=== PATIENT | female | born 1960 | race Caucasian/White ===

== ENCOUNTER 2022-04-18 08:57 | Day surgery (SDC) | payer BC, SELFPAY ==
[2022-04-13 10:55] VITALS: BMI 24.7
[2022-04-13 12:27] VITALS: BMI 24.0
--- NOTE | 2022-04-15 13:01 | MHC.SHP ---
Pre-Procedural Eval Section A Date of Service: 04/15/22 The patient is an INPATIENT: No Changes since office visit: No Cold of Flu in the past 2 weeks, No New Medical Problems, No Changes in Medication and No Patient answered all questions The History & Physical has been completed within 30 days and I have reviewed it.: Yes Section B Chief Complaint: cataract Allergies: Allergies Allergy/AdvReac Type Severity Reaction Status Date / Time oxycodone [From ROXICET] Allergy Unknown ITCHINESS Verified 04/13/22 12:27 Plan Diagnosis/Plan: Unchanged I have reviewed the history and physical and performed a pertinent physical examination on my patient. No changes have occurred unless specified.
[2022-04-18 10:41] VITALS: BP 137/44; PULSE 69; RESP 16; TEMP 36.4; O2SAT 99
--- NOTE | 2022-04-18 10:46 | HO.ANESPROP2 ---
HPI - Anesthesia Eval Consult details Narrative: Right eye cataract [facility] Past Medical History Medical History Anemia Cataract Heart murmur Hypercholesteremia Hypertension Vitamin D deficiency Family History Family history of problems with anesthesia: No Surgical History Surgical History History of bunionectomy Hx of tonsillectomy History of Problems with Anesthesia: No Social History Social History Are you a primary chronic care nurse to a significant other at home: No Do you presently have visiting nurse or other home services: No Patient Tobacco Use Status: Never used Tobacco Use of substances other than those prescribed or required for medical reasons: No Are you DNR?: No Advance Directives: No Advance Directives Information Provided: Yes Advance Directives on File: No Nutrition Risks: No Nutritional Risk Meds Allergies Allergy/AdvReac Type Severity Reaction Status Date / Time oxycodone [From ROXICET] Allergy Unknown ITCHINESS Verified 04/13/22 12:27 Active Medications: Current Medications Lactated Ringer's (Lr) 500 mls @ 50 mls/hr IVCONT .Q10H ROBERT Povidone Iodine (Povidone Iodine 5 % Ophth Soln 30 Ml Bottle) 1 appl EYE-RIGHT PREOP PRN PRN Reason: Pre-Op Surgical Implant Prophy Home Medications Medication Instructions Recorded Confirmed Last Taken Type fenofibrate 160 mg tablet 1 tab PO DAILY 04/13/22 04/13/22 Unknown History hydrochlorothiazide 25 mg tablet 1 tab PO DAILY 04/13/22 04/13/22 04/18/22 History olmesartan 5 mg tablet 1 tab PO BID 04/13/22 04/13/22 04/18/22 History simvastatin 40 mg tablet 1 tab PO BEDTIME 04/13/22 04/13/22 Unknown History valacyclovir 500 mg tablet 1 tab PO DAILY PRN Cold Sores 04/13/22 04/13/22 Unknown History Exam Exam Date and Time: April 18, 2022 1046 Height,Weight and Vital Signs: Height 5 ft 4 in Weight 63.503 kg Last Vital Signs Temp 97.5 F 04/18/22 10:41 Pulse 69 04/18/22 10:41 Resp 16 04/18/22 10:41 BP 137/44 L 04/18/22 10:41 Pulse Ox 99 04/18/22 10:41 O2 Del Method 04/18/22 10:41 Airway Mallampati Class: II TM Dist: >3cm Neck ROM: Full Loose/Missing/Broken Teeth: No Heart: [id number] Lungs: cta b/l Assessment and Plan Assessment Anesthesia Assessment: Anesthesia Plan Discussed and Chart Reviewed Final Anesthetic Review Family History of Problems with Anesthesia: No History of Problems with Anesthesia: No NPO: Yes ASA Class: II Final Preanesthetic Review: No Changes in Pt Med Stat, Meds/Allgs Chart Reviewed, Consent Obtained/Reviewed and Anes Risks/Benef Reviewed Patient Risk: Low Procedure Risk: Low Assessment/Block/Sedation in SS: Assess/Block/Sedation-SS Anesthetic Plan Anesthetic Plan: MAC: and Agree w/ Assess. and Plan Disposition: Standard PACU
[2022-04-18] MEDS: Lactated Ringers 500 ML 50 ML IVCONT (10:52)
[2022-04-18] MEDS: Tetracaine HCl/PF 0.5% Oph Sol 4 ML DROPS 1 DROP EYE-RIGHT (10:52)
[2022-04-18] MEDS: Cyclopentolate 1 % Ophth Sol 2 ML DRPBTL 1 DROP EYE-RIGHT ×3 (10:53→11:03)
[2022-04-18] MEDS: Tropicamide 1 % Ophth Sol 3 ML BTL 1 DROP EYE-RIGHT ×3 (10:53→11:04)
[2022-04-18] MEDS: Phenylephrine HCL 2.5% Oph SoL 2 ML BOTTLE 1 DROP EYE-RIGHT ×3 (10:58→11:07)
--- NOTE | 2022-04-18 11:45 | HO.PNOPHT ---
Ophthalmology Procedure Procedure Date of Service: 04/18/22 Ophthalmology Viscoelastic: Healon Duet Dual Pack Pro Ophthalmology Lenses: TECNIS [id number] (20.5) Procedure Notes: PREOPERATIVE DIAGNOSIS: Decreased visual acuity right eye secondary to cataract POSTOPERATIVE DIAGNOSIS: Same PROCEDURE: Right cataract extraction with intraocular lens insertion SURGEON: Torres Higgins M.D. ANESTHESIA: Topical/MAC ESTIMATED BLOOD LOSS: None COMPLICATIONS: None After obtaining informed consent, the patient was brought to the operating room suite and placed in the supine position. After adequate sedation per anesthesia, topical drops of Tetracaine were given to the right eye. The eye was then prepped and draped in the usual sterile fashion. The operating room microscope was then positioned over the operative eye and a lid speculum placed. A paracentesis was created. Viscoelastic was then instilled into the anterior chamber. A three plane incision was then created temporally, utilizing a 2.85 mm keratome. Capsulotomy forceps were then utilized to create a circular tear capsulotomy. Hydrodissection and hydrodelineation were carried out until adequate mobilization of the nucleus occurred. Phacoemulsification was then utilized to remove the dense central nucleus followed by removal of the cortical material utilizing the automated aspiration irrigation unit. Viscoelastic was instilled into the posterior capsular bag followed by placement of a posterior chamber intraocular lens without difficulty. The residual Viscoelastic was then removed utilizing the automated IA machine. The wound was checked and found to be watertight. The patient tolerated the procedure well and the lid speculum was removed. Intracameral injection of Vigamox 0.1 mL followed by a subtenon injection of Kenalog-40 0.2 mL were administered. The patient will be seen in the a.m.
[2022-04-18 12:05] VITALS: BP 114/47; PULSE 72; RESP 16; TEMP 36.5; O2SAT 98
== END 2022-04-18 12:20 | disposition home or self-care (01) ==
PROVIDERS: PCP Registered Nurse; Visit Provider Ophthalmology
PROC: (CPT 66985; principal; 2022-04-18 11:20)
DX: H25.11 Age-related nuclear cataract, right eye (principal); I10 Essential (primary) hypertension; H35.033 Hypertensive retinopathy, bilateral; Z79.899 Other long term (current) drug therapy
CPT/HCPCS: 66984; J2250; J3300; V2632